=== PATIENT | male | born 1995 | race American Indian/Alaskan Native ===

== ENCOUNTER 2021-05-18 13:58 | Day surgery (SDC) | payer OTHER ==
[~2021-05-18 13:58] MED LIST: ACETAMINOPHEN 500 MG TAB PO SCH; CELECOXIB 200 MG CAP PO NR; GABAPENTIN 300 MG CAP PO NR; HEPARIN 5,000 UNIT/1 ML VIAL SUB-Q NR; LACTATED RINGERS 1,000 ML IV SCH; MIDAZOLAM 2 MG/2 ML INJ IV NR; ceFAZolin/STERILE WATER 2 GM/20 ML SYRINGE IV NR
[2021-05-18] MEDS ORDERED: ONDANSETRON 4 MG/2 ML INJ IV PRN (15:07)
[2021-05-18] MEDS ORDERED: oxyCODONE /ACETAMINOPHEN 5-325MG TAB PO PRN (15:07)
--- NOTE | 2021-05-18 15:08 | Anesthesia Consultation ---
Anesthesia Consult and Med Hx Date of service: 05/18/21 - Airway Anesthetic Teeth Evaluation: Good ROM Head & Neck: Adequate Mental/Hyoid Distance: Adequate Mallampati Class: Class II Intubation Access Assessment: Probably Good - Pre-Operative Health Status ASA Pre-Surgery Classification: ASA1 Proposed Anesthetic Plan: General - Pulmonary Hx Smoking: No Hx Respiratory Symptoms: No (asymptomatic COVID infection >2wks ago) - Cardiovascular System Hx Hypertension: No - Central Nervous System CVA: No - Endocrine Hx Renal Disease: No Hx Liver Disease: No Hx Insulin Dependent Diabetes: No Hx Non-Insulin Dependent Diabetes: No Hx Thyroid Disease: No - Other Systems Hx Obesity: No - Additional Comments Anesthesia Medical History Comments: No prior GA. No FHx anesthetic complications.
--- NOTE | 2021-05-18 15:08 | Anesthesia Day of Surgery ---
Anesthesia Day of Surgery - Day of Surgery Patient Examined: Yes Patient H&P Reviewed: Yes Patient is NPO: Yes
[2021-05-18] MEDS ORDERED: LIDOCAINE MPF (2%) 20 MG/1 ML VIAL 5 ML ONE (17:06)
[2021-05-18] MEDS ORDERED: dexAMETHasone 20 MG/5 ML VIAL ONE (17:06)
[2021-05-18] MEDS ORDERED: ROCURONIUM 50 MG/5 ML INJ IV ONE (17:06)
[2021-05-18] MEDS ORDERED: ONDANSETRON 4 MG/2 ML INJ ONE (17:06)
[2021-05-18] MEDS ORDERED: propofoL 200 MG/20 ML VIAL IV ONE (17:07)
[2021-05-18] MEDS ORDERED: HYDROmorphone 1 MG/1 ML INJ ONE (17:07)
[2021-05-18] MEDS ORDERED: LIDOCAINE (1%) 10 MG/1 ML VIAL 20 ML MDV ONE (18:05)
[2021-05-18] MEDS ORDERED: BUPIVACAINE/PF (0.25%) 2.5 MG/ML 30 ML VIAL INFILTRATI ONE ×2 (18:05→18:17)
[2021-05-18] MEDS ORDERED: NEOSTIGMINE 10MG/10 ML INJ MDV ONE (19:32)
[2021-05-18] MEDS ORDERED: LACTATED RINGERS 1,000 ML ONE ×2 (19:32→19:44)
[2021-05-18] MEDS ORDERED: GLYCOPYRROLATE 0.4 MG/2 ML INJ ONE (19:32)
[2021-05-18] MEDS ORDERED: KETOROLAC 30 MG/1 ML INJ ONE (19:52)
--- NOTE | 2021-05-18 20:21 | Procedure Note ---
Date of procedure: 05/18/21 Pre-op diagnosis: LIH Post-op diagnosis: same (direct) Procedure: Laparoscopic repair of LIH, direct Description of procedure: Pt was placed supine on the OR table. GETA was administered. Abdomen was prepped and draped. Proposed skin incisions were inf iltrated with 8 ml of 1% Lidocaine with epinephrine. A small infraumbilical incision was made. A small incision was made in the left anterior rectus sheath. The horseshoe shaped balloon dissector was inserted into the pre- peritoneal space and was inflated under direct vision. The dissector was removed and a Reggie port inserted into the pre-peritoneal space. CO2 was instilled in the pre-peritoneal space. Two 5 mm ports were inserted in the midline of the suprapubic area and the mid-hypogastrium. Pt was placed head & right side down. The pre-peritoneal space was dissected with identification of the symphysis pubis, inferior epigastric vessels and external iliac vessels. A direct LIH was identified. There was no evidence of an indirect LIH. The direct LIH was reduced back towards the peritoneal cavity. A medium piece of Bard 3D Max mesh was inserted into the pre-peritoneal space. This was secure to the symphysis pubis and anterior to the anterior superior iliac spine with a spiral tacker. The mesh was also secured the the abdominal wall on either side of the inferior epigastric vessels. The two 5 mm ports were removed. The Reggie port was removed and the insufflated air released. The defect in the anterior rectus sheath was closed with 2 interrupted sutures of 2-0 Vicryl. Skin incisions were closed with running subcuticular sutures of 4-0 Monocryl. Skin glue was applied to all incisions. Pt tolerated the procedure well. Pt was extubated in the OR and was taken to PACU in stable condition. Anesthesia: GETA Surgeon: OSMAN VIGIL Estimated blood loss: minimal Pathology: none Condition: stable Disposition: PACU
[2021-05-18] MEDS: HYDROmorphone 1 MG/1 ML INJ IV PRN ×3 (20:35→20:55)
[2021-05-18 21:21] VITALS: BP 125/77
--- NOTE | 2021-05-18 22:22 | Post Anesthesia Evaluation ---
- Post Anesthesia Evaluation Patient Participated: Yes Airway Patent: Yes Stable Respiratory Function: Yes Nausea/Vomiting: No Temp > 96.8F: Yes Pain Manageable: Yes Adequeate Hydration: Yes Anesthesia Complications: No
== END 2021-05-18 21:35 | disposition home or self-care (01) ==
LOC: OR 13:58
PROVIDERS: ATTEND Surgery
DX: K40.90 Unilateral inguinal hernia, without obstruction or gangrene, not specified as recurrent (principal); Z20.822 Contact with and (suspected) exposure to COVID-19; Z79.899 Other long term (current) drug therapy; Z98.890 Other specified postprocedural states
CPT/HCPCS: 49650; C1781; J0690; J1100; J1170; J1644; J1885; J2250; J2405; J2704; J2710; J7120; U0003